=== PATIENT | female | born 1940 | race Caucasian/White ===

== ENCOUNTER → 2016-06-12 14:42 | Outpatient (CLI) | payer MEDICARE, BC ==
[2014-05-12 07:01] VITALS: BMI 26.0
[~2016-06-12 14:42] MED LIST: BAYER CHEWABLE81 MG PO; CALCIUM 600+D T1 TA1 PO; LIPITOR20 MG PO; MOBIC7.5 MG PO; PLAVIX75 MG PO; PROCARDIA XL60 MG PO; SYNTHROID200 MC1 PO
== END | disposition home or self-care (01) ==
LOC: D.MRI 14:42
DX: M54.16 Radiculopathy, lumbar region (principal)

== ENCOUNTER → 2017-08-28 16:42 | Outpatient (CLI) | payer MEDICARE, BC ==
[2014-05-12 07:01] VITALS: BMI 26.0
== END | disposition home or self-care (01) ==
LOC: D.MAMMO 08-14 14:30
DX: Z85.3 Personal history of malignant neoplasm of breast (principal)

== ENCOUNTER 2017-09-04 06:39 | Outpatient (CLI) | payer MEDICARE, BC ==
[~2017-09-04] VITALS: Ht 157.5 cm; Wt 65.9 kg
--- NOTE | ~2017-09-04 | HEMODYNAMI ---
PATIENT:THERON TLOENTINO MEDICAL RECORD: [id number] : 44 LOCATION:[facility] ADMISSION DATE: 09/04/17 Generatedon:09/04/201710:21 Patient name: THERON TOLENTINO Patient #: [id number] SSN: D OB: 1940 Date of study: 09/04/2017 Page: Of Hemodynamic Procedure Report Patient Data Patient Demographics Procedure consent was obtained First Name: THERON Gender: Female Last Name: RANDA : 1940 [facility] Initial: K Age: 76 year(s) Patient #: [id number] Race: Additional ID: [id number] Contact details Address: [address] [place] [address] ROAD State: [place] City: [place] Zip code: [address] Past Medical History History of disease Date Diagnosis Comments CAD PVD Allergies: No known allergies Admission Admission Data Admission Date: 09/04/2017 Admission Time: 6:39 Lab Results Lab Result Date: 09/04/2017 Lab Result Time: 0:00 Biochemistry Name Units Result Min Max BUN mg/dl 21 --(----)-* 7 18 Creatinine mg/dl 1 --(--*-)-- 0.6 1.3 CBC Name Units Result Min Max Hemoglobin g/dl 15.2 --(-*--)-- 13.5 17.5 Procedure Procedure Types Cath Procedure Diagnostic Procedure [facility] w/Coronaries Sedation Charges Moderate Sedation up to 15 minutes Procedure Description Procedure Date Procedure Date: 09/04/2017 Procedure Start Time: 10:03 Procedure End Time: 10:21 Procedure Staff Name Function Lincoln De Paz MD Performing Physician Stephanie Robbins RT Monitor Osiel Mojica RT Scrub Julio Cesar Ochoa RN Nurse Procedure Data Cath Procedure Fluoroscopy Diagnostic fluoroscopy Total fluoroscopy Time: 2.1 time: 2.1 min min Diagnostic fluoroscopy Total fluoroscopy dose: 311 dose: 311 mGy mGy Contrast Material Contrast Material Type Amount (ml) Isovue 370 56 Entry Location Entry Primary Successful Side Size Upsize Upsize Entry Closure [place] ccessful Closure Location (Fr) 1 (Fr) 2 (Fr) Remarks Device Remarks Radial Right 6 Fr Mechanical artery Short Compression Estimated blood loss: 5 ml Diagnostic catheters Device Type Used For End Catheter Placement DIAGNOSTIC [place] 110cm 5 Procedure Fr catheter ([id number]) Procedure Complications No complications Procedure Medications Medication Administration Route Dosage 0.9% NaCl I.V. 100 ml/hr Oxygen etCO2 Nasal cannula 2 l/min Heparin Flush Bag added to field 2 bags (1000units/500ml NS) Lidocaine 1% added to field 20 Radial Cocktail added to field 1 syringe (Verapomil 2mg/Nitro 400mcg/Heparin 1500units) Versed I.V. 1 mg Fentanyl I.V. 50 mcg Versed I.V. 1 mg Fentanyl I.V. 50 mcg Radial Cocktail I.A. 1 syringe (Verapomil 2mg/Nitro 400mcg/Heparin 1500units) Hemodynamics Rest HGB: 15.2 (g/dl) Heart Rate: 70 (bpm) Pressure Samples Time Site Value (mmHg) Purpose Heart Use Rate(bpm) 10:08 LV 120/-6,8 Snapshot 76 Gradients Valve Time Site Site Mean SEP/DFP Peak To Heart Use 1 2 (mmHg) (sec/min) Peak Rate (mmHg) (bpm) Aortic 10:08 LV AO 84 Snapshots Pre Cath Intra NCS Post Cath Vital Signs Time Heart Resp SPO2 etCO2 NIBP (mmHg) Rhythm Pain Sedation Rate (ipm) (%) (mmHg) Status Level (bpm) 9:44:07 66 19 96 0 155/69(117) NSR 0 (11) 10(A) , No pain 9:48:50 63 16 95 0 133/70(105) NSR 0 (11) 10(A) , No pain 9:53:31 62 17 96 0 131/62(105) NSR 0 (11) 10(A) , No pain 9:58:09 68 18 96 11.2 135/69(105) NSR 0 (11) 10(A) , No pain 10:02:52 63 26 92 0 125/61(99) NSR 0 (11) 10(A) , No pain 10:07:31 75 20 95 15.7 116/60(89) NSR 0 (11) 9(A) , No pain 10:12:44 70 15 93 15.7 129/57(101) NSR 0 (11) 9(A) , No pain 10:17:23 77 16 94 15.7 134/71(102) NSR 0 (11) 9(A) , No pain Medications Time Medication Route Dose Verified Delivered Reason Notes Effectiveness by by 9:47:52 0.9% NaCl I.V. 100 Julio Cesar Julio Cesar Per ml/hr Don Ochoa physician RN RN 9:48:04 Oxygen etCO2 2 l/min Julio Cesar Julio Cesar Per Nasal Don Ochoa physician cannula RN RN 9:48:39 Heparin Flush added 2 bags Julio Cesar Julio Cesar used for Bag to Don Ochoa procedure (1000units/500ml field RN RN NS) 9:48:48 Lidocaine 1% added 20ml Julio Cesar Julio Cesar for local to vial Lorigan Don anesthetic RN RN 9:48:59 Radial Cocktail added 1 Julio Cesar Julio Cesar used for (Verapomil to syringe Don Ochoa procedure 2mg/Nitro RN RN 400mcg/Heparin 1500units) 9:57:52 Versed I.V. 1 mg Julio Cesar Julio Cesar for sedation Don Ochoa RN RN 9:58:08 Fentanyl I.V. 50 mcg Julio Cesar Julio Cesar for sedation Don Ochoa RN RN 10:00:24 Versed I.V. 1 mg Julio Cesar Julio Cesar for sedation Don Ochoa RN RN 10:00:38 Fentanyl I.V. 50 mcg Julio Cesar Julio Cesar for sedation Don Ochoa RN RN 10:06:09 Radial Cocktail I.A. 1 Julio Cesar Lincoln for (Verapomil syringe Don De Paz MD vasodilation 2mg/Nitro RN 400mcg/Heparin 1500units) Procedure Log Time Note 9:26:35 Osiel Mojica RT(R) sent for patient. Start room use. 9:26:36 Time tracking: Regular hours (M-F 7:00 - 5:00) 9:26:39 Plan of Care:Hemodynamics will remain stable., Cardiac rhythm will remain stable., Comfort level will be maintained., Respiratory function will remain adequate., Patient/ family verbilizes understanding of procedure., Procedure tolerated without complication., Recovers from procedure without complications.. 9:26:51 Signed procedure consent form obtained from patient. 9:27:24 H&P Date Dictated: 08/14/2017 Within 30 days and on chart., H&P Addendum completed by physician on day of procedure. (MUST COMPLETE FOR ALL OUTPATIENTS). 9:27:41 Patient allergic to No known allergies 9:28:51 Lab Result : BUN 21 mg/dl 9::51 Lab Result : Creatinine 1 mg/dl 9::51 Lab Result : Hemoglobin 15.2 g/dl 9:33:50 Patient received from Pre/Post Procedure Room to CCL 1 Alert and oriented. Tansferred to table in Supine position. 9:33:51 Warm blankets applied, and willian hugger turned on for patient comfort. 9:33:51 Correct patient and procedure confirmed by team. 9:33:52 ECG and BP/O2 sat monitors applied to patient. 9:43:13 Vital chart was started 9:43:14 Baseline sample Acquired. 9:43:17 Rhythm: sinus rhythm 9:43:19 Full Disclosure recording started 9:43:20 Pre-procedure instructions explained to patient. 9:43:20 Pre-op teaching completed and patient verbalized understanding. 9:43:24 Family in waiting room. 9:43:28 Patient NPO since Midnight. 9:43:30 Is the patient allergic to Iodine/contrast media? No. 9:43:32 Is patient on blood thinner?Yes 9:43:42 HAVENT HAD PLAVIX IN 3 DAYS 9:43:43 Patient diabetic? No. 9:43:47 Patient not . Patient is over age 55. 9:43:49 Previous problem with sedation/anesthesia? No ? 9:43:50 Snore? Yes 9:43:51 Sleep apnea? No 9:43:53 Deviated septum? No 9:43:54 Opens mouth fully? Yes 9:43:56 Sticks out tongue? Yes 9:43:59 Airway obstruction? No ? 9:44:02 Dentures? No ? 9:44:04 Modified Jose's test Ulnar < 7 seconds 9:44:07 Patient pain scale 0/10 ?. 9:47:50 IV patent on arrival in left hand with 0.9% NaCl at O. 9:47:52 0.9% NaCl 100 ml/hr I.V. was administered by Julio Cesar Ochoa RN; Per physician; 9:47:53 Lab results completed and on chart. 9:47:56 Right Radial & Right Groin area was prepped with chlora-prep and draped in sterile fashion 9:47:57 Alarms reviewed by R. N. 9:47:57 Sharps counted by scrub and verified by R.N. 9:47:59 Use device set Radial Dx or PCI 9:48:00 ACIST Syringe (65653) opened to sterile field. 9:48:01 Bag Decanter (2002S) opened to sterile field. 9:48:03 Tegaderm 4 x 4 (1626W) opened to sterile field. 9:48:03 ACIST Hand Control (91416) opened to sterile field. 9:48:04 Oxygen 2 l/min etCO2 Nasal cannula was administered by Julio Cesar Ochoa RN; Per physician; 9:48:04 ACIST Manifold (56836) opened to sterile field. 9:48:06 Medline Cath Pack ([id number]) opened to sterile field. 9:48:06 DIAGNOSTIC WIRE .035 260cm J wire (694589) opened to sterile field. 9:48:07 MBrace Wrist Support ([id number]) opened to sterile field. 9:48:08 SHEATH 6Fr Prelude Radial ([id number]) opened to sterile field. 9:48:39 Heparin Flush Bag (1000units/500ml NS) 2 bags added to field was administered by Julio Cesar Ochoa RN; used for procedure; 9:48:48 Lidocaine 1% 20ml vial added to field was administered by Julio Cesar Ochoa RN; for local anesthetic; 9:48:59 Radial Cocktail (Verapomil 2mg/Nitro 400mcg/Heparin 1500units) 1 syringe added to field was administered by Julio Cesar Ochoa RN; used for procedure; 9:49:45 NEEDLE Cook 21G 4cm Radial ([id number]) opened to sterile field. 9:57:17 Zero performed for pressure channel P1 9:57:30 --------ALL STOP TIME OUT------ 9:57:31 Final Timeout: patient, procedure, and site verified with staff and physician. All members of the team are in agreement. 9:57:33 Right Radial & Right Groin site verified by team. 9:57:36 Physical assessment completed. ASA score P 2 - A patient with mild systemic disease as per Lincoln De Paz MD. 9:57:38 Sedation plan: IV Moderate Sedation Medication:Versed, Fentanyl 9:57:52 Versed 1 mg I.V. was administered by Julio Cesar Ochoa RN; for sedation; 9:58:08 Fentanyl 50 mcg I.V. was administered by Julio Cesar Ochoa RN; for sedation; 10:00:24 Versed 1 mg I.V. was administered by Julio Cesar Ochoa RN; for sedation; 10:00:38 Fentanyl 50 mcg I.V. was administered by Julio Cesar Ochoa RN; for sedation; 10:03:27 Procedure started. 10:03:40 Local anesthetic to right femoral artery with Lidocaine 1% by Lincoln De Paz MD.INITIAL ACCESS ONLY 10:05:48 A 6 Fr Short sheath was inserted into the Right Radial artery 10:06:09 Radial Cocktail (Verapomil 2mg/Nitro 400mcg/Heparin 1500units) 1 syringe I.A. was administered by Lincoln De Paz MD; for vasodilation; 10:06:26 A DIAGNOSTIC [place] 110cm 5 Fr catheter ([id number]) was advanced over the wire and used for Procedure. 10:07:18 LV gram done using FARR 10:07:21 Injector settings: Ml/sec: 7, Volume: 15, 10:08:33 EF : 60 % 10:09:43 LCA angiography performed. 10:11:04 RCA angiography performed. 10:16:13 Catheter removed. 10:16:59 Procedure ended.(Physican Out) 10:17:24 TR BAND Standard ([id number]) opened to sterile field. 10:17:38 Sheath removed intact; hemostasis achieved with Mechanical Compression to the Right Radial artery. 10:18:04 Fluoroscopy time 02.10 minutes. 10:18:07 Fluoroscopy dose: 311 mGy 10:18:07 Flurop Dose total: 311 10:18:22 Contrast amount:Isovue 370 56ml. 10:18:24 TR band inflated with 13cc of air. 10:18:31 Post-procedure physical assessment completed. ASA score P 2 - A patient with mild systemic disease as per Lincoln De Paz MD. 10:18:35 Post procedure rhythm: sinus rhythm 10:18:37 Estimated blood loss: 5 ml 10:18:39 Post procedure instruction explained to patient.Patient verbalizes understanding. 10:18:39 Patient needs reinforcement of post procedure teaching. 10:19:22 Procedure type changed to Cath procedure, Diagnostic procedure, LHC, LHC w/Coronaries, Sedation Charges, Moderate Sedation up to 15 minutes 10:20:09 Procedure and supply charges have been captured, reviewed, submitted and are correct. 10:20:11 Procedure Complication : No complications 10:20:54 Vital chart was stopped 10:20:54 See physician's report for complete and final results. 10:20:57 Report given to Pre/Post Procedure Room. 10:21:01 Patient transfered to Pre/Post Procedure Room with Bed. 10:21:04 Procedure ended. 10:21:04 Full Disclosure recording stopped 10:21:07 End room use (Document Last) Device Usage Item Name Manufacture Quantity Catalog Number Hospital Part Current M inimal Lot# / Charge Number Stock Stock Serial# Code ACIST Syringe Acist 1 37372 [id number] 570994 286713 2 0 (44870) [employer] Bag Decanter Microtek 1 2001S 942165 45549 417026 5 (2001S) Medical Inc. Tegaderm 4 x 4 3M 1 1626W 885604 680813 274643 5 (1626W) ACIST Hand Acist 1 25943 146206 483020 594386 5 Control (57828) [employer] Inc ACIST Manifold Acist 1 83747 937834 416720 363929 5 (38886) [employer] Inc Medline Cath Cardinal 1 [id number] 158073 27642 596941 5 [facility] ([id number]) DIAGNOSTIC WIRE [facility] [place] 1 459994 094275 282589 334957 3 0 .035 260cm J wire (670354) MBrace Wrist Advanced 1 140-0250-00 193087 22819 341092 5 Support Vascular ([id number]) Dynamics SHEATH 6Fr Merit 1 [id number] 163040 040548 989500 5 Prelude Radial Medical ([id number]) NEEDLE Cook 21G Cook Medical 1 [id number] 926983 719566 389527 5 4cm Radial (U17126) DIAGNOSTIC Terumo 1 21-4607 120840 630995 330794 5 [place] 110cm 5 Fr catheter (489606) TR BAND Terumo 1 [id number] 150384 754868 776370 4 0 Standard ([id number]) Signature Audit [place] Stage Time Signature Unsigned Intra-Procedure 09/04/2017 Stephanie Robbins 10:21:54 AM RT(R) Signatures Monitor : Stephanie Robbins Signature : RT Date : Time : [place] [id number] [place] [address]
[2017-09-04 07:29] VITALS: BP 173/65; Ht 157.5 cm; Wt 65.9 kg
[2017-09-04 07:39] LABS: BASOPHILS 0.5 % (0-2); EOSINOPHILS 2.3 % (0-7); HEMATOCRIT 44.1 % (36.0-48.0); HEMOGLOBIN 15.2 g/dL (12-16); IMMATURE GRANULOCYTES 0.4 % (0-5); LYMPHOCYTES 22.3 % (15-50); MCH 30.8 pg (26.0-34.0); MCHC 34.5 g/dL (31.0-37.0); MCV 89.5 fL (80.0-100.0); MEAN PLATELET VOLUME 10.3 fL (7.4-10.4); MONOCYTES 9.8 % (2-11); NEUTROPHILS 64.7 % (40-80); PLATELET COUNT 232 10x3/uL (130-400); RBC 4.93 10x6/uL (4.00-5.40); RDW 12.3 % (11.5-14.5)
[2017-09-04 07:49] LABS: ANION GAP 12.8 mmol/L (8-16); CALCIUM 9.7 mg/dL (8.5-10.1); POTASSIUM - SERUM 3.8 mmol/L (3.5-5.1)
== END 2017-09-04 12:37 | disposition home or self-care (01) ==
LOC: D.CATH 06:39
PROVIDERS: Internal Medicine Cardiovascular Disease
DX: I25.119 Atherosclerotic heart disease of native coronary artery with unspecified angina pectoris (principal); I10 Essential (primary) hypertension; Z01.812 Encounter for preprocedural laboratory examination

== ENCOUNTER → 2017-09-10 10:57 | Outpatient (CLI) | payer MEDICARE, BC ==
[~2017-09-10] VITALS: Ht 157.5 cm; Wt 65.9 kg
--- NOTE | ~2017-09-10 | HEMODYNAMI ---
PATIENT:THERON TOLENTINO MEDICAL RECORD: [id number] : 44 LOCATION:[facility] ADMISSION DATE: 09/10/17 Generatedon:09/10/201713:58 Patient name: THERON TOLENTINO Patient #: [id number] SSN: D OB: 1940 Date of study: 09/10/2017 Page: Of Hemodynamic Procedure Report Patient Data Patient Demographics Procedure consent was obtained First Name: THERON Gender: Female Last Name: RANDA : 1940 [facility] Initial: K Age: 76 year(s) Patient #: [id number] Race: Additional ID: [id number] Contact details Address: [address] [place] [address] ROAD State: [place] City: [place] Zip code: [address] Past Medical History History of disease Date Diagnosis Comments CAD PVD Allergies: No known allergies Admission Admission Data Admission Date: 09/10/2017 Admission Time: 10:57 Lab Results Lab Result Date: 09/04/2017 Lab Result Time: 0:00 Biochemistry Name Units Result Min Max BUN mg/dl 21 --(----)-* 7 18 Creatinine mg/dl 1 --(--*-)-- 0.6 1.3 CBC Name Units Result Min Max Hemoglobin g/dl 15.2 --(-*--)-- 13.5 17.5 Procedure Procedure Types Cath Procedure Diagnostic Procedure PREET Procedure Description Procedure Date Procedure Date: 09/10/2017 Procedure Start Time: 13:41 Procedure End Time: 13:55 Procedure Staff Name Function Monty Sanchez MD Performing Physician Juwan Wood RN Monitor Dedra Cash RT Scrub Demetria Obando RT Monitor Leopoldo Elizabeth CRNA Additional personnel Charles Justice Diet Tech Procedure Data Cath Procedure Fluoroscopy Diagnostic fluoroscopy Total fluoroscopy Time: 0 time: 0 min min Diagnostic fluoroscopy Total fluoroscopy dose: 0 dose: 0 mGy mGy Contrast Material Contrast Material Type Amount (ml) Isovue 300 0 Estimated blood loss: 5 ml Procedure Complications No complications Procedure Medications Medication Administration Route Dosage Oxygen etCO2 Nasal cannula 3 l/min Refer to Anesthesia Notes for Sedation Medications 0.9% NaCl I.V. 100 ml/hr Hemodynamics Rest HGB: 15.2 (g/dl) Pre Cath Intra NCS Post Cath Vital Signs Time Heart Resp SPO2 etCO2 NIBP (mmHg) Rhythm Pain Sedation Rate (ipm) (%) (mmHg) Status Level (bpm) 13:44:12 83 26 97 11.9 Measuring NSR 0 (11) 10(A) , No pain 13:45:36 68 24 100 19.4 Time NSR 0 (11) 10(A) Exceeded , No pain 13:46:57 74 9 97 0 No Cuff NSR 0 (11) 10(A) , No pain 13:48:30 93 22 94 0 Out of NSR 0 (11) 10(A) range , No pain 13:50:35 85 24 99 21.6 181/69(100) NSR 0 (11) 10(A) , No pain 13:54:16 70 19 96 0 139/67(107) NSR 0 (11) 10(A) , No pain 13:56:45 70 18 98 22.4 134/68(112) NSR 0 (11) 10(A) , No pain Medications Time Medication Route Dose Verified Delivered Reason Notes Effective ness by by 13:46:15 Oxygen etCO2 3 Monty Echeverria Per Nasal l/min [facility] RN physician cannula 13:46:22 Refer to Monty Echeverria Per Anesthesia [facility] RN physician Notes for MD Sedation Medications 13:46:34 0.9% NaCl I.V. 100 Monty Juwan Per ml/hr [facility] RN physician MD Procedure Log Time Note 13:23:23 Diagnostic Cath Status : Elective 13:24:07 Juwan Wood RN sent for patient. Start room use. 13:24:08 Time tracking: Regular hours (M-F 7:00 - 5:00) 13:24:13 Plan of Care:Hemodynamics will remain stable., Cardiac rhythm will remain stable., Comfort level will be maintained., Respiratory function will remain adequate., Patient/ family verbilizes understanding of procedure., Procedure tolerated without complication., Recovers from procedure without complications.. 13:30:42 Patient received from Pre/Post Procedure Room to CCL 2 Alert and oriented. Tansferred to table in Supine position. 13:30:43 Warm blankets applied, and willian hugger turned on for patient comfort. 13:30:43 Correct patient and procedure confirmed by team. 13:30:44 Signed procedure consent form obtained from patient. 13:30:45 ECG and BP/O2 sat monitors applied to patient. 13:36:02 Vital chart was started 13:36:09 Rhythm: sinus rhythm 13:36:11 Full Disclosure recording started 13:36:16 H&P Date Dictated: 09/10/2017 Within 30 days and on chart., H&P Addendum completed by physician on day of procedure. (MUST COMPLETE FOR ALL OUTPATIENTS). 13:36:17 Pre-procedure instructions explained to patient. 13:36:17 Pre-op teaching completed and patient verbalized understanding. 13:36:19 Family in waiting room. 13:36:20 Patient NPO since Midnight. 13:36:23 Is the patient allergic to Iodine/contrast media? No. 13:36:23 Was the patient premedicated? No 13:36:30 Is patient on blood thinner?Yes 13:36:33 ACC The patient was administered the following blood thiners within the last 24 hours: ACCPlavix 13:36:35 Patient diabetic? No. 13:36:37 Previous problem with sedation/anesthesia? No ? 13:36:39 Snore? Yes 13:36:40 Sleep apnea? Yes 13:36:42 Deviated septum? No 13:36:43 Opens mouth fully? Yes 13:36:45 Sticks out tongue? Yes 13:36:51 Airway obstruction? No ? 13:36:53 Dentures? No ? 13:36:56 Pre procedure: right dorsailis pedis pulse 1+ Palpable, but thready & weak; easily obliterated 13:36:58 Pre procedure: left dorsailis pedis pulse 1+ Palpable, but thready & weak; easily obliterated 13:37:00 Patient pain scale 0/10 ?. 13:37:05 IV patent on arrival in right forearm with 0.9% NaCl at KVO. 13:37:07 Lab results completed and on chart. 13:37:13 Alarms reviewed by R. N. 13:37:13 Sharps counted by scrub and verified by AnneN. 13:37:15 Physician arrived 13:37:15 --------ALL STOP TIME OUT------ 13:37:16 Final Timeout: patient, procedure, and site verified with staff and physician. All members of the team are in agreement. 13:37:23 Physical assessment completed. ASA score P 2 - A patient with mild systemic disease as per Monty Sanchez MD. 13:37:33 Sedation plan: TIVA Medication:Propofol 13:37:59 Leopoldo Elizabeth CRNA present and monitoring patient for TIVA. 13:38:02 Charles Boonedsoe Fuller Brush Worker present for PREET. 13:41:04 Procedure started. 13:41:07 PREET started. 13:45:44 Vital chart was stopped 13:45:45 Vital chart was started 13:46:15 Oxygen 3 l/min etCO2 Nasal cannula was administered by Juwan Wood RN; Per physician; 13:46:22 Refer to Anesthesia Notes for Sedation Medications was administered by Juwan Wood RN; Per physician; 13:46:34 0.9% NaCl 100 ml/hr I.V. was administered by Juwan Wood RN; Per physician; 13:49:56 PREET completed. 13:52:48 Procedure ended.(Physican Out) 13:52:57 Fluoroscopy time 00.00 minutes. 13:52:59 Fluoroscopy dose: 0 mGy 13:52:59 Flurop Dose total: 0 13:53:02 Contrast amount:Isovue 300 0ml. 13:53:04 Sharps counted by scrub and verified by R.N. 13:53:07 Insertion/operative site no bleeding no hematoma. 13:53:48 Post Procedure Pulses reassessed and unchanged 13:54:43 Post procedure rhythm: unchanged. 13:54:45 Estimated blood loss: 5 ml 13:54:47 Post procedure instruction explained to patient.Patient verbalizes understanding. 13:54:47 Patient needs reinforcement of post procedure teaching. 13:54:59 Procedure and supply charges have been captured, reviewed, submitted and are correct. 13:55:05 Procedure Complication : No complications 13:55:07 See physician's report for complete and final results. 13:55:15 Report given to Pre/Post Procedure Room. 13:55:18 Patient transfered to Pre/Post Procedure Room with Stretcher. 13:55:20 Procedure ended. 13:55:20 Full Disclosure recording stopped 13:55:23 End room use (Document Last) 13:58:34 Vital chart was stopped Signature Audit [place] Stage Time Signature Unsigned Intra-Procedure 09/10/2017 Demetria Obando 1:58:32 PM RT(R) Signatures Monitor : Juwan Wood Signature : RN Date : Time : Monitor : Demetria Obando RT Signature : Date : Time : [address] [place] [address]
--- NOTE | ~2017-09-10 | HP ---
PATIENT: THERON TOLENTINO MEDICAL RECORD: [id number] ACCOUNT: [id number] LOCATION:LEELA : 44 ADMISSION DATE: 09/10/17 HISTORY AND PHYSICAL EXAMINATION INTERIM HISTORY AND PHYSICAL HISTORY: A 76-year-old female with known history of coronary disease, status post recent angiography via Dr. De Paz. She was noted to have moderate, possible worse mitral regurgitation as well. We will proceed with transesophageal echocardiogram to assure no surgical MR before intervention percutaneously. PAST MEDICAL HISTORY: 1. History of dyslipidemia. 2. Hypertension. 3. Coronary disease as described above. 4. Hypothyroidism. PHYSICAL EXAMINATION: GENERAL: Pleasant female, in no acute distress. HEENT: Normocephalic, atraumatic. NECK: No bruits. HEART: Regular with II/ systolic ejection murmur. LUNGS: Good air excursion. ABDOMEN: Soft, nontender. EXTREMITIES: Pulse 2+ and equal. No edema. IMPRESSION: Known history of coronary disease and mitral regurgitation. We will use transesophageal echocardiography to assess the extent of mitral regurgitation to further delineate intervention. TRANSINT:[id number] Voice Confirmation ID: [id number] DOCUMENT ID: [id number] LIAM BERNARDO MD at 0849 CC: [id number] DICTATION DATE: 09/10/17 1318 RN CARDIOVASCULAR: 09/10/17 1400 DEP CLI 09/10/17 [place] [id number] [place] [id number]
--- NOTE | ~2017-09-10 | TEE ---
PATIENT:THERON TOLENTINO MEDICAL RECORD: [id number] LOCATION:D.[facility] AGE OF PATIENT: 76 ADMISSION DATE: 09/10/17 SEX: F REFERRING PHYSICIAN: INTERPRETING PHYSICIAN: LIAM BERNARDO MD TRANSESOPHAGEAL ECHOCARDIOGRAM Date: 09/10/17 PREET CHARGE Y INDICATIONS: MR PREMEDICATIONS: PATIENT'S RESPONSE PROCEDURE DOPPLER MEASUREMENTS: LVIT LA PA RA LVOT RVOT Asc. Ao AV Gradient Peak AV Mean AV Area MV Gradient Peak MV Mean MV Area INTERPRETATION: Doppler: 2-D: COLOR FLOW DOPPLER NORMAL SALINE STUDY: MISCELLANOUS: DIAGNOSIS: PLAN: Rn Endoscopy:3 Dr. Dumont Wholesale Manager: 1 ADEN HERNANDEZ COMMENTS: DATE OF SERVICE: 09/10/2017 Transesophageal Note PROCEDURE IN DETAIL: After general sedation via TIVA via anesthesia, transesophageal Omniplane probe was placed in the distal esophagus and proximal stomach without difficulty. FINDINGS: Normal LV wall motion. Normal internal dimension. Estimated EF 55%. TRANSESOPHAGEAL ECHOCARDIOGRAM REPORT [id number] GAURAV TOLENTINO Aortic valve is tricuspid with good valve excursion, trivial AI by color flow imaging. Left atrium appears of normal dimensions. Left atrial appendage is well visualized with excellent contractility. Mitral valve is well visualized. Mild prolapse of the anterior leaflet, but mild/mild plus MR by color flow imaging. Right sided chambers were grossly normal. Mild TR with by color flow imaging. At the end of procedure, the probe was turned posteriorly and this showed minimal atherosclerotic debris in the descending aorta. TRANSINT:[id number] Voice Confirmation ID: [id number] DOCUMENT ID: [id number] at 0849 CC: [id number] DICTATION DATE: 09/10/17 1355 TELEPHONE SALES AGENT: 09/10/17 1432 DEP CLI 09/10/17 [place] [id number] [place] [id number]
[2017-09-10 12:13] VITALS: BP 161/69; Ht 157.5 cm; Wt 65.9 kg
[2017-09-10 12:19] LABS: BASOPHILS 0.4 % (0-2); EOSINOPHILS 1.8 % (0-7); HEMATOCRIT 44.3 % (36.0-48.0); IMMATURE GRANULOCYTES 0.3 % (0-5); LYMPHOCYTES 18.3 % (15-50); MCH 30.4 pg (26.0-34.0); MCHC 33.9 g/dL (31.0-37.0); MCV 89.7 fL (80.0-100.0); MEAN PLATELET VOLUME 10.2 fL (7.4-10.4); MONOCYTES 10.7 % (2-11); NEUTROPHILS 68.5 % (40-80); PLATELET COUNT 232 10x3/uL (130-400); RBC 4.94 10x6/uL (4.00-5.40); RDW 12.4 % (11.5-14.5); WBC 9.2 10x3/uL (4.8-10.8)
[2017-09-10 13:05] LABS: ANION GAP 14.3 mmol/L (8-16); CALCIUM 9.6 mg/dL (8.5-10.1); CARBON DIOXIDE 24.4 mmol/L (21.0-32.0); CREATININE - SERUM 0.9 mg/dL (0.6-1.3); POTASSIUM - SERUM 3.7 mmol/L (3.5-5.1)
== END | disposition home or self-care (01) ==
LOC: D.CATH 10:57
PROVIDERS: Internal Medicine Cardiovascular Disease
DX: I34.0 Nonrheumatic mitral (valve) insufficiency (principal); Z01.812 Encounter for preprocedural laboratory examination

== ENCOUNTER → 2017-10-13 07:19 | Outpatient (CLI) | payer MEDICARE, BC ==
[2017-09-10 12:13] VITALS: BMI 26.6
== END | disposition home or self-care (01) ==
LOC: D.RT 07:19
DX: R06.02 Shortness of breath (principal)

== ENCOUNTER → 2018-05-07 08:36 | Outpatient (CLI) | payer MEDICARE, BC ==
[2017-09-10 12:13] VITALS: BMI 26.6
== END | disposition home or self-care (01) ==
LOC: D.US 08:36
DX: E04.9 Nontoxic goiter, unspecified (principal)

== ENCOUNTER → 2018-05-27 06:36 | Outpatient (CLI) | payer MEDICARE, BC ==
[2017-09-10 12:13] VITALS: BMI 26.6
== END | disposition home or self-care (01) ==
LOC: D.MRI 06:36
PROVIDERS: ATTEND Family Medicine
DX: M79.671 Pain in right foot (principal)

== ENCOUNTER 2019-01-01 08:00 | Outpatient (CLI) | payer MEDICARE, BC ==
[2017-09-10 12:13] VITALS: BMI 26.6
== END 2019-01-01 23:59 | disposition home or self-care (01) ==
LOC: D.MAMMO 08:00
PROVIDERS: ATTEND Family Medicine
DX: Z12.31 Encounter for screening mammogram for malignant neoplasm of breast (principal)

== ENCOUNTER 2019-02-02 08:00 | Outpatient (CLI) | payer MEDICARE, BC ==
[2017-09-10 12:13] VITALS: BMI 26.6
== END 2019-02-02 23:59 | disposition home or self-care (01) ==
LOC: D.MAMMO 08:00
PROVIDERS: ATTEND Family Medicine
DX: R92.8 Other abnormal and inconclusive findings on diagnostic imaging of breast (principal)

== ENCOUNTER → 2019-05-20 15:19 | Outpatient (CLI) | payer MEDICARE, BC ==
[2017-09-10 12:13] VITALS: BMI 26.6
== END | disposition home or self-care (01) ==
LOC: D.LABREF 15:19
PROVIDERS: ATTEND Orthopaedic Surgery
DX: M17.12 Unilateral primary osteoarthritis, left knee (principal)

== ENCOUNTER 2019-07-15 12:58 | Inpatient (IN) | payer MEDICARE, BC ==
[~2019-07-15] VITALS: Ht 157.5 cm; Wt 76.2 kg
[~2019-07-15 12:58] MED LIST changes: +SKELAXIN800 MG PO; +SYNTHROID150 MCG PO; -SYNTHROID200 MC1 PO
[2019-07-28 11:16] LABS: BASOPHILS 0.4 % (0-2); HEMATOCRIT 45.5 % (36.0-48.0); HEMOGLOBIN 14.2 g/dL (12-16); IMMATURE GRANULOCYTES 0.3 % (0-5); LYMPHOCYTES 16.4 % (15-50); MCH 29.5 pg (26.0-34.0); MCHC 31.2 g/dL (31.0-37.0); MCV 94.4 fL (80.0-100.0); MONOCYTES 9.6 % (2-11); NEUTROPHILS 71.3 % (40-80); PLATELET COUNT 264 10x3/uL (130-400); RBC 4.82 10x6/uL (4.00-5.40); RDW 13.5 % (11.5-14.5)
[2019-07-28 11:28] LABS: ANION GAP 10.8 mmol/L (8-16); APTT 28.3 SECONDS (22.8-39.4); CALCIUM 9.3 mg/dL (8.5-10.1); CARBON DIOXIDE 27.6 mmol/L (21.0-32.0); CREATININE - SERUM 0.9 mg/dL (0.6-1.3); INR 0.94 (0.85-1.17); POTASSIUM - SERUM 3.4 mmol/L (3.5-5.1); PROTIME 12.5 SECONDS (11.6-15.0)
[2019-07-28 12:01] LABS: BACTERIA FEW /hpf (NEGATIVE); BILIRUBIN NEGATIVE (NEGATIVE); EPITHELIAL CELLS 0-5 /hpf (0-5); GLUCOSE NEGATIVE (NEGATIVE); KETONE NEGATIVE (NEGATIVE); NITRITE NEGATIVE (NEGATIVE); RED CELLS - URINE OCC /hpf (0-5); SPECIFIC GRAVITY 1.025 (1.005-1.020); UROBILINOGEN NORMAL (NORMAL)
[2019-08-03] VITALS (8 sets, daily range): BP systolic 120–191; BP diastolic 50–75; BMI 28.4; BMI 30.2
--- NOTE | 2019-08-03 10:59 | NUR ---
THROUGH TRAFFIC KEPT TO A MINIMUM. HIBACLENS AND ALCOHOL USED TO PREP ENTIRE LEFT LEG PRIOR TO CHLORAPREP. STERILE GOWNED AND GLOVED FOR CHLROPREP OF ENTIRE LEFT LEG.
--- NOTE | 2019-08-03 13:00 | NUR ---
RECEIVED TO ROOM 1212 VIA BED FROM PACU. A/O X3. NO C/O PAIN AT THIS TIME. DRESSING TO LEFT KNEE IS DRY AND INTACT. SKIN IS INTACT OTHERWISE. DENIES NEEDS.
--- NOTE | 2019-08-03 17:38 | OP ---
PATIENT NAME: THERON SOTELO MEDICAL RECORD: [id number] :44 LOCATION:D.[facility] D.1212 ADMISSION DATE:08/03/19 SURGEON: DENVER PARHAM DO DATE OF OPERATION: 08/03/2019 PROCEDURE PERFORMED: Left total knee arthroplasty. PREOPERATIVE DIAGNOSIS: Left knee osteoarthritis. POSTOPERATIVE DIAGNOSIS: Left knee osteoarthritis. INDICATIONS: Ms. Sotelo is a 78-year-old female who has had left knee pain for a long time. She has tried all manner of nonoperative treatment including injections and home physical therapy to no avail. She was tired of dealing with the pain and it was affecting her activities of daily living and she wanted something done surgically. She was aware of the risks including infection, bleeding, damage to nerves and vessels, need for further surgery, failure of implants, continued pain, blood clots, and even and she signed a consent. SURGEON: Denver Parham DO DESCRIPTION OF PROCEDURE: The patient was taken to the operative suite, laid in supine position after given a block by anesthesia in the preoperative area. She was given a gram of Ancef and 80 mg of gentamicin. She was sedated and LMA was placed. The left lower extremity was then prepped and draped in sterile fashion. Timeout was performed, everyone was in agreement as to the correct side, site and patient and procedure. I then marked out the incision, covered in [place]. I started with a 10-blade scalpel and careful dissection down through the skin to the capsule. I then used fresh 10-blade scalpel for medial parapatellar approach to the knee and opened up the capsule, part of the fat pad was removed. I then measured the patella and milled it down. The knee was then flexed and intramedullary guide was used. After the ACL was removed to go into the knee, the distal femur cutting guide was then put on and cut the distal femur, then cut the proximal tibia as well, removing the menisci and any excess bone. I then put the 10 extension block and it fit well. We then flexed the femur up and measured the femur to be a 57.5, did 4-in-1 cutting block and cut the femur. Once the femur was cut, the trial was put on and tibia floated in. I marked the rotation and then this was removed. We drilled the lug holes in the femur as well as the holes for the patellar implant. We then exposed the tibia, reamed and punched the tibia. Tibia tray was sized to be 63, the extra hole was then put in the tibia with a mix of cement after irrigating the tibia very well, put cement on the tibia as well as on the implant, impacted into place. Excess cement was removed. We then impacted the femur on and put a 10-poly between and then put the patella on and put cement on the patella and in the holes and squeezed into place. While it was held, we put a 500 mL with 10% povidone iodine in the knee and let it sit for 3 minutes and irrigated out with more than a liter of normal saline. By that time, the cement had dried. We then trialed the 12-poly and it fit the best with good medial and lateral stability in extension and flexion. We then irrigated the knee one more time and put a 12 E-poly with anterior stabilized bearing and the knee ranged very well and stable in flexion and extension. I then put the locking bar in and put [place], vancomycin and tobramycin powder in the knee and closed the capsule with #1 pops using a genpiw-fx-vglzm stitch. This was done by myself and Alfred Buchanan, certified surgical 411 directory assistance operator. He then closed the skin with 2-0 Vicryl in inverted interrupted fashion and ZipLine was placed on the knee. I OPERATIVE REPORT [id number] THERON SOTELO then placed Restor VAC around the leg and she was then awakened and taken to recovery in stable condition. Blood loss was approximately 200 mL. COMPLICATIONS: None. TRANSINT:[id number] Voice Confirmation ID: [id number] DOCUMENT ID: [id number] DENVER PARHAM DO at 1738 CC: [id number] DICTATION DATE: 08/03/19 1224 MANAGER METROLOGY: 08/03/19 1459 [facility] [place] [id number] [place] [address]
--- NOTE | 2019-08-03 17:50 | NUR ---
ATE ALL OF SUPPER. UP TO BR WITH ONE PERSON MIN ASSIST AND RW. VOIDED 300CC CLEAR YELLOW URINE. REPOSTIONED IN BED FOR COMFORT. CPM PLACED TO RIGHT KNEE. DENIES NEEDS.
--- NOTE | 2019-08-03 22:59 | NUR ---
PT ASSISTED TO BATHROOM TOLERATED WELL. BACK IN BED. COMPLAINS OF PAIN WITH PRN PAIN MEDICATION GIVEN PER MAY. RESTING WITH EYES CLOSED AND CHEST RISING. CALL LIGHT IN REACH. WILL CONTINUE TO OBSERVE.
--- NOTE | 2019-08-04 01:09 | NUR ---
ASSIST GIVEN TO BATHROOM. PT USES WALKER WITH SLOW GAIT. PT IN BED. NO NEEDS MADE KNOWN. CALL LIGHT IN REACH.
--- NOTE | 2019-08-04 06:17 | NUR ---
PT OFF CPM 1950 AND BACK ON AT 5. PT TO BATHROOM PRIOR TO CPM. WILL CONTINUE TO OBSERVE.
[2019-08-04 06:30] LABS: BASOPHILS 0.1 % (0-2); EOSINOPHILS 0 % (0-7); HEMATOCRIT 36.7 % (36.0-48.0); HEMOGLOBIN 11.5 g/dL (12-16); IMMATURE GRANULOCYTES 0.3 % (0-5); LYMPHOCYTES 7.4 % (15-50); MCH 29.1 pg (26.0-34.0); MCHC 31.3 g/dL (31.0-37.0); MCV 92.9 fL (80.0-100.0); MEAN PLATELET VOLUME 9.9 fL (7.4-10.4); MONOCYTES 8.6 % (2-11); NEUTROPHILS 83.6 % (40-80); PLATELET COUNT 243 10x3/uL (130-400); RBC 3.95 10x6/uL (4.00-5.40); RDW 13.4 % (11.5-14.5); WBC 15.6 10x3/uL (4.8-10.8)
[2019-08-04 06:46] LABS: ANION GAP 10.3 mmol/L (8-16); CALCIUM 8.5 mg/dL (8.5-10.1); CARBON DIOXIDE 24.1 mmol/L (21.0-32.0); PHOSPHOROUS 3.5 mg/dL (2.5-4.9); POTASSIUM - SERUM 4.4 mmol/L (3.5-5.1)
[2019-08-04 08:30] VITALS: BP 114/57
[2019-08-04 13:06] VITALS: Ht 157.5 cm; Wt 76.2 kg
--- NOTE | 2019-08-04 14:30 | NUR ---
PT IS VERY CONFUSED AND AGGITATED. WAS CALM AND COOPERATIVE THIS AM AND DURING LUNCH. SPOKE WITH HER FAMILY VIA PHONE AND THEY REPORT THAT SHE HAS APFO0GH WHEN SHE GETS CONFUSED AND THIS IS NOT NEW.
--- NOTE | 2019-08-04 18:27 | MORECARE ---
CASE MANAGEMENT DISCHARGE SUMMARY PATIENT: THERON TOLENTINO UNIT: [id number] ADM DATE: 08/03/19 AGE: 78 : 42 SEX: F ROOM/BED: D.1212 AUTHOR: JENIFER POWELL PHYSICIAN: REFERRING PHYSICIAN: KATELYNN PARHAM DO DATE OF SERVICE: 08/04/19 Discharge Plan Patient Name: THERON TOLENTINO Facility: [facility]:[place] : 1940 Planned Disposition: Outpatient PT\OT Anticipated Discharge Date: 08/05/19 Discharge Date: Expected LOS: 2 Initial Reviewer: [email or web address] Initial Review Date: 08/03/2019 Generated: 08/04/19 7:26 pm Patient Name: THERON TOLENTINO Page 14624 at 1827 All edits/amendments must be made on the electronic document DICTATION DATE: 08/04/191825 ENGINE DISPATCHER: ELLIOT 08/04/191825 RPT#: [id number] DC DATE: STATUS: ADM IN [facility] [address] [place] [address] END OF REPORT
--- NOTE | 2019-08-04 18:33 | MORECARE ---
CASE MANAGEMENT DISCHARGE SUMMARY PATIENT: THERON TOLENTINO UNIT: [id number] ADM DATE: 08/03/19 AGE: 78 : 42 SEX: F ROOM/BED: D.1212 AUTHOR: JENIFER POWELL PHYSICIAN: REFERRING PHYSICIAN: KATELYNN PARHAM DO DATE OF SERVICE: 08/04/19 Discharge Plan Patient Name: THERON TOLENTINO Facility: [facility]:[place] : 1940 Planned Disposition: Outpatient PT\OT Anticipated Discharge Date: 08/05/19 Discharge Date: Expected LOS: 2 Initial Reviewer: [email or web address] Initial Review Date: 08/03/2019 Generated: 08/04/19 7:33 pm DCPIA - Discharge Planning Initial Assessment Updated by [email or web address]: Kayla Amador on 08/04/19 6:30 pm * Is the patient Alert and Oriented? Yes * How many steps to enter\exit or inside your home? Ramp * PCP Dr. Acosta * [facility]acy [facility] * Preadmission Environment Home Alone * ADLs Independent * Equipment Rolling Walker Shower Chair * Other Equipment CPM, Ice Wrap * List name and contact numbers for known caregivers / representatives who currently or will assist patient after discharge: Chuy Waldrop (son) [phone] Kaylyn Weiwei dtr) [phone] * Verbal permission to speak to the caregivers and representatives has been obtained from the patient. Yes * Community resources currently utilized None * Please name any agencies selected above. [facility] [phone] * Additional services required to return to the preadmission environment? Yes * Can the patient safely return to the preadmission environment? Yes * Has this patient been hospitalized within the prior 30 days at any hospital? No Last DP export: 08/04/19 5:27 p Patient Name: THERON TOLENTINO Page 86422 at 1833 All edits/amendments must be made on the electronic document DICTATION DATE: 08/04/191832 WATCH ASSEMBLY INSPECTOR: ELLIOT 08/04/191832 RPT#: [id number] DC DATE: STATUS: ADM IN [facility] [address] [facility] [place] [address] END OF REPORT
--- NOTE | 2019-08-04 18:40 | MORECARE ---
CASE MANAGEMENT DISCHARGE SUMMARY PATIENT: THERON SOTELO UNIT: [id number] ADM DATE: 08/03/19 AGE: 78 : 42 SEX: F ROOM/BED: D.1212 AUTHOR: ANDRE,JENIFER PHYSICIAN: REFERRING PHYSICIAN: KATELYNN PARHAM DO DATE OF SERVICE: 08/04/19 Discharge Plan Patient Name: THERON SOTELO Facility: [facility]:[place] : 1940 Planned Disposition: Outpatient PT\OT Anticipated Discharge Date: 08/05/19 Discharge Date: Expected LOS: 2 Initial Reviewer: [email or web address] Initial Review Date: 08/03/2019 Generated: 08/04/19 7:39 pm Comments DCP- Discharge Planning Updated by [email or web address]: Kayla Amador on 08/04/19 5:[address] DC Plans: [facility], #[phone]. CM will contact 08/04. CM met with patient to discuss initial discharge planning. Patient is in agreement to proceed with the assessment. Patient reports that she lives at home independently with her spouse and sister. Patient is alert/oriented. Stairs/steps: Ramps. PCP: Dr. Acosta. Pharmacy: [facility], [facility]. Patient states she has been able to obtain all of their prescribed medications. HHS: No. DME: Walker, CPM, BSC, Ice wrap. Patient gives permission to speak with family members. Emergency contact: Chuy Sotelo (son) [phone], Kaylyn Gagan (dtr) [phone]. Patient is Independent with all ADL's, medication management ENERGY MANAGER. CM discussed the availability of HH, Rehab, SNF, OP Therapy, DME services. Patient is current with [facility] ([phone]). Patient feels safe returning to previous environment. Patient denies being hospitalized within the past 30 days. Patient denies the use of community resources ENERGY MANAGER. Transportation at time of discharge: , Chuy, or son Chuy Joy DCPIA - Discharge Planning Initial Assessment Updated by [email or web address]: Kayla Amador on 08/04/19 6:30 pm * Is the patient Alert and Oriented? Yes * How many steps to enter\exit or inside your home? Ramp * PCP Dr. Acosta * [facility] * Preadmission Environment Home Alone * ADLs Independent * Equipment Rolling Walker Shower Chair * Other Equipment CPM, Ice Wrap * List name and contact numbers for known caregivers / representatives who currently or will assist patient after discharge: Chuy Waldrop (son) [phone] Kaylyn Farah dtr) [phone] * Verbal permission to speak to the caregivers and representatives has been obtained from the patient. Yes * Community resources currently utilized None * Please name any agencies selected above. [facility] [phone] * Additional services required to return to the preadmission environment? Yes * Can the patient safely return to the preadmission environment? Yes * Has this patient been hospitalized within the prior 30 days at any hospital? No Last DP export: 08/04/19 5:33 p Patient Name: THERON SOTELO Page 20531 at 1840 All edits/amendments must be made on the electronic document DICTATION DATE: 08/04/191838 METAL RIVETING MACHINE OPERATOR: ELLIOT 08/04/191838 RPT#: [id number] DC DATE: STATUS: ADM IN [facility] [address] [place] [address] END OF REPORT
--- NOTE | 2019-08-04 18:46 | MORECARE ---
CASE MANAGEMENT DISCHARGE SUMMARY PATIENT: JOAN SOTELO UNIT: [id number] ADM DATE: 08/03/19 AGE: 78 : 42 SEX: F ROOM/BED: D.1212 AUTHOR: JENIFER POWELL PHYSICIAN: REFERRING PHYSICIAN: KATELYNN PARHAM DO DATE OF SERVICE: 08/04/19 Discharge Plan Patient Name: JOAN SOTELO Facility: [facility]:[place] : 1940 Planned Disposition: Outpatient PT\OT Anticipated Discharge Date: 08/05/19 Discharge Date: Expected LOS: 2 Initial Reviewer: [email or web address] Initial Review Date: 08/03/2019 Generated: 08/04/19 7:46 pm Comments DCP- Discharge Planning Updated by [email or web address]: Kayla Amador on 08/04/19 5:[address] DC Plans: [facility], #[phone]. CM will contact 08/04. CM met with patient to discuss initial discharge planning. Patient is in agreement to proceed with the assessment. Patient reports that she lives at home independently with her spouse and sister. Patient is alert/oriented. Stairs/steps: Ramps. PCP: Dr. Acosta. Pharmacy: [facility]. Patient states she has been able to obtain all of their prescribed medications. HHS: No. DME: Walker, CPM, BSC, Ice wrap. Patient gives permission to speak with family members. Emergency contact: Chuy Sotelo Jr (son) [phone], Kaylyn Farah (dtr) [phone]. Patient is Independent with all ADL's, medication management PANEL BUILDER. CM discussed the availability of HH, Rehab, SNF, OP Therapy, DME services. Patient is current with [facility] ([phone]). Patient feels safe returning to previous environment. Patient denies being hospitalized within the past 30 days. Patient denies the use of community resources PANEL BUILDER. Transportation at time of discharge: , Chuy, or son Chuy Campbell. DCPIA - Discharge Planning Initial Assessment Updated by [email or web address]: Kayla Amador on 08/04/19 6:30 pm * Is the patient Alert and Oriented? Yes * How many steps to enter\exit or inside your home? Ramp * PCP Dr. Acosta * [facility] * Preadmission Environment Home Alone * ADLs Independent * Equipment Rolling Walker Shower Chair * Other Equipment CPM, Ice Wrap * List name and contact numbers for known caregivers / representatives who currently or will assist patient after discharge: Chuy Waldrop (son) [phone] Kaylyn Farah dtr) [phone] * Verbal permission to speak to the caregivers and representatives has been obtained from the patient. Yes * Community resources currently utilized None * Please name any agencies selected above. [facility] [phone] * Additional services required to return to the preadmission environment? Yes * Can the patient safely return to the preadmission environment? Yes * Has this patient been hospitalized within the prior 30 days at any hospital? No Coverage Notice Reviewer: [email or web address] Glenis Amador Notice Issued Date-Time: 08/04/2019 18:39 Notice Type: IM Discharge Notice Notice Delivered To: Patient Relationship to Patient: Self Helicopter Technician Name: Joan Sotelo Delivery Method: HAND - Hand Delivered Dayna Days: Prior Verbal Notification: Recipient Understood Notice: Yes Recipient Signature: Yes Med Rec Note Co-signed by Attending: Coverage Notice Comment: DC IMM to chart. Last DP export: 08/04/19 5:40 p Patient Name: JOAN SOTELO Page 17038 at 1846 All edits/amendments must be made on the electronic document DICTATION DATE: 08/04/191845 LIFT TRUCK OPERATOR: ELLIOT 08/04/191845 RPT#: [id number] DC DATE: STATUS: ADM IN [facility] [address] [place] [address] END OF REPORT
[2019-08-04 19:52] LABS: BILIRUBIN NEGATIVE (NEGATIVE); GLUCOSE NEGATIVE (NEGATIVE); KETONE NEGATIVE (NEGATIVE); NITRITE NEGATIVE (NEGATIVE); UROBILINOGEN NORMAL (NORMAL)
[2019-08-04 20:00] VITALS: BP 140/70
--- NOTE | 2019-08-04 20:00 | NUR ---
ALERT BUT CONFUSED TO WHERE SHE IS AT TIMES, CLIMBING OUT OF BED TO USE BEDSIDE COMODE, ASSISTED BACK TO BED, WOUND VAC DRESSING AND CHIN WRAP INTACT TO LEFT KNEE, SEE SHIFT ASSESSMENT, CALL LIGNT IN REACH FALL PRECAUTIONS IN PLACE, BED ALARM ON
[2019-08-05 04:00] VITALS: BP 113/65
[2019-08-05 08:15] VITALS: BP 163/58
[2019-08-05 08:18] LABS: ANION GAP 13.5 mmol/L (8-16); BASOPHILS 0.3 % (0-2); CALCIUM 8.7 mg/dL (8.5-10.1); CARBON DIOXIDE 24.4 mmol/L (21.0-32.0); EOSINOPHILS 1.4 % (0-7); HEMATOCRIT 38.7 % (36.0-48.0); HEMOGLOBIN 12.2 g/dL (12-16); IMMATURE GRANULOCYTES 0.3 % (0-5); LYMPHOCYTES 10.9 % (15-50); MCH 29.3 pg (26.0-34.0); MCHC 31.5 g/dL (31.0-37.0); MEAN PLATELET VOLUME 10.2 fL (7.4-10.4); MONOCYTES 7.6 % (2-11); NEUTROPHILS 79.5 % (40-80); PLATELET COUNT 260 10x3/uL (130-400); POTASSIUM - SERUM 3.9 mmol/L (3.5-5.1); RBC 4.16 10x6/uL (4.00-5.40); RDW 13.8 % (11.5-14.5); WBC 12.8 10x3/uL (4.8-10.8)
--- NOTE | 2019-08-05 08:30 | NUR ---
PT SITTING UP IN BED. RESP EVEN AND UNLABORED. PT TAKING FREQUENT SIPS OF WATER, BUT C/O NOT BEING ABLE TO SWALLOW. OBSERVED PT SWALLOW WATER, NO DROOLING, NO CHOKING. PT THEN STATES TO STAFF, "I KNOW IT LOOKS LIKE I SWALLOWED, BUT LISTEN I CANT BURP IT BACK UP", PT THEN BELCHES. DR. PARHAM PRESENT, INFORMED HIM OF PT COMPLAINT. NEW ORDER NOTED.
--- NOTE | 2019-08-05 09:13 | NUR ---
PTS MORNING MEDICATIONS ADMINISTERED PER MD ORDERS. GUNNAR WELL. NO DROOLING OR CHOKING NOTED AT THIS TIME. CPM REMOVED FROM PT LEFT LOWER EXTREMITY. DRESSING C/D/I
--- NOTE | 2019-08-05 11:08 | NUR ---
PT REMAINS UP IN CHAIR AT BEDSIDE. NO ACUTE DISTRESS NOTED AT THIS TIME. CL WITHIN REACH. DENIES FURTHER NEEDS AT THIS TIME. ENCOURAGED TO CALL WITH NEEDS
--- NOTE | 2019-08-05 11:56 | MORECARE ---
CASE MANAGEMENT DISCHARGE SUMMARY PATIENT: JOAN SOTELO UNIT: [id number] ADM DATE: 08/03/19 AGE: 78 : 42 SEX: F ROOM/BED: D.1212 AUTHOR: ANDRE,JENIFER PHYSICIAN: REFERRING PHYSICIAN: KATELYNN PARHAM DO DATE OF SERVICE: 08/05/19 Discharge Plan Patient Name: JOAN SOTELO Facility: [facility]:[place] : 1940 Planned Disposition: Outpatient PT\OT Anticipated Discharge Date: 08/05/19 Discharge Date: Expected LOS: 2 Initial Reviewer: [email or web address] Initial Review Date: 08/03/2019 Generated: 08/05/19 12:56 pm DCP- Discharge Planning Updated by [email or web address]: Kayla Amador on 08/04/19 5:[address] DC Plans: [facility], #[phone]. CM will contact 08/04. CM met with patient to discuss initial discharge planning. Patient is in agreement to proceed with the assessment. Patient reports that she lives at home independently with her spouse and sister. Patient is alert/oriented. Stairs/steps: Ramps. PCP: Dr. Acosta. Pharmacy: [facility] , [facility]. Patient states she has been able to obtain all of their prescribed medications. HHS: No. DME: Walker, CPM, BSC, Ice wrap. Patient gives permission to speak with family members. Emergency contact: Chuy Sotelo Jr (son) [phone], Kaylyn Farah (dtr) [phone]. Patient is Independent with all ADL's, medication management EMBEDDED ENGINEER. CM discussed the availability of HH, Rehab, SNF, OP Therapy, DME services. Patient is current with [facility] ([phone]). Patient feels safe returning to previous environment. Patient denies being hospitalized within the past 30 days. Patient denies the use of community resources EMBEDDED ENGINEER. Transportation at time of discharge: , Chuy, or son Chuy Campbell. DCPIA - Discharge Planning Initial Assessment Updated by [id number]: Kayla Amador on 08/04/19 6:30 pm * Is the patient Alert and Oriented? Yes * How many steps to enter\exit or inside your home? Ramp * PCP Dr. Acosta * [facility] * Preadmission Environment Home Alone * ADLs Independent * Equipment Rolling Walker Shower Chair * Other Equipment CPM, Ice Wrap * List name and contact numbers for known caregivers / representatives who currently or will assist patient after discharge: Chuy Waldrop (son) [phone] Kaylyn Farah dtr) [phone] * Verbal permission to speak to the caregivers and representatives has been obtained from the patient. Yes * Community resources currently utilized None * Please name any agencies selected above. [facility] [phone] * Additional services required to return to the preadmission environment? Yes * Can the patient safely return to the preadmission environment? Yes * Has this patient been hospitalized within the prior 30 days at any hospital? No External Providers External Provider: OTHER-OTHER Next Contact Date: Service Request Date: Service Type: Resolution: Reviewer: Comments: Coverage Notice Reviewer: [email or web address] Glenis Amador Notice Issued Date-Time: 08/04/2019 18:39 Notice Type: IM Discharge Notice Notice Delivered To: Patient Relationship to Patient: Self Production Posting Clerk Name: Joan Sotelo Delivery Method: HAND - Hand Delivered Dayna Days: Prior Verbal Notification: Recipient Understood Notice: Yes Recipient Signature: Yes Med Rec Note Co-signed by Attending: Coverage Notice Comment: DC IMM to chart. Last DP export: 08/04/19 5:46 p Patient Name: JOAN SOTELO Page 23444 at 1156 All edits/amendments must be made on the electronic document DICTATION DATE: 08/05/19 1156 INSULATION APPLICATOR: ELLIOT 08/05/19 1156 RPT#: [id number] DC DATE: STATUS: ADM IN [facility] [address] [place] [address] END OF REPORT
--- NOTE | 2019-08-05 12:17 | MORECARE ---
CASE MANAGEMENT DISCHARGE SUMMARY PATIENT: JOAN SOTELO UNIT: [id number] ADM DATE: 08/03/19 AGE: 78 : 42 SEX: F ROOM/BED: D.1212 AUTHOR: ANDRE,JENIFER PHYSICIAN: REFERRING PHYSICIAN: KATELYNN PARHAM DO DATE OF SERVICE: 08/05/19 Discharge Plan Patient Name: JOAN SOTELO Facility: [facility]:[place] : 1940 Planned Disposition: Outpatient PT\OT Anticipated Discharge Date: 08/05/19 Discharge Date: Expected LOS: 2 Initial Reviewer: [email or web address] Initial Review Date: 08/03/2019 Generated: 08/05/19 1:16 pm DCP- Discharge Planning Updated by [email or web address]: Kayla Amador on 08/04/19 5:[address] DC Plans: [facility], #[phone]. CM will contact 08/04. CM met with patient to discuss initial discharge planning. Patient is in agreement to proceed with the assessment. Patient reports that she lives at home independently with her spouse and sister. Patient is alert/oriented. Stairs/steps: Ramps. PCP: Dr. Acosta. Pharmacy: [facility] , [facility]. Patient states she has been able to obtain all of their prescribed medications. HHS: No. DME: Walker, CPM, BSC, Ice wrap. Patient gives permission to speak with family members. Emergency contact: Chuy Sotelo Jr (son) [phone], Kaylyn Farah (dtr) [phone]. Patient is Independent with all ADL's, medication management SHEETMETAL TRADES WORKER. CM discussed the availability of HH, Rehab, SNF, OP Therapy, DME services. Patient is current with [facility] ([phone]). Patient feels safe returning to previous environment. Patient denies being hospitalized within the past 30 days. Patient denies the use of community resources SHEETMETAL TRADES WORKER. Transportation at time of discharge: , Chuy, or son Chuy Campbell. DCPIA - Discharge Planning Initial Assessment Updated by [email or web address]: Kayla Amador on 08/04/19 6:30 pm * Is the patient Alert and Oriented? Yes * How many steps to enter\exit or inside your home? Ramp * PCP Dr. Acosta * [facility] * Preadmission Environment Home Alone * ADLs Independent * Equipment Rolling Walker Shower Chair * Other Equipment CPM, Ice Wrap * List name and contact numbers for known caregivers / representatives who currently or will assist patient after discharge: Chuy Waldrop (son) [phone] Kaylyn Farah dtr) [phone] * Verbal permission to speak to the caregivers and representatives has been obtained from the patient. Yes * Community resources currently utilized None * Please name any agencies selected above. [facility] [phone] * Additional services required to return to the preadmission environment? Yes * Can the patient safely return to the preadmission environment? Yes * Has this patient been hospitalized within the prior 30 days at any hospital? No Coverage Notice Reviewer: [email or web address] Glenis Amador Notice Issued Date-Time: 08/04/2019 18:39 Notice Type: IM Discharge Notice Notice Delivered To: Patient Relationship to Patient: Self Turner In Name: Joan Sotelo Delivery Method: HAND - Hand Delivered Dayna Days: Prior Verbal Notification: Recipient Understood Notice: Yes Recipient Signature: Yes Med Rec Note Co-signed by Attending: Coverage Notice Comment: DC IMM to chart. Last DP export: 08/05/19 10:56 a Patient Name: JOAN SOTELO Page 60614 at 1217 All edits/amendments must be made on the electronic document DICTATION DATE: 08/05/19 1216 SALES AND MARKETING ASSISTANT: ELLIOT 08/05/19 1216 RPT#: [id number] DC DATE: STATUS: ADM IN [facility] [address] [place] [address] END OF REPORT
[2019-08-05 12:36] VITALS: BP 177/67
[2019-08-05 16:30] VITALS: BP 152/55
--- NOTE | 2019-08-05 16:30 | NUR ---
ASSISTED PT UP TO BSC. PT GUNNAR WELL. PT REQUEST TO SIT UP IN CHAIR FOR MEAL. ASSISTED PT TO BEDSIDE CHAIR FOR MEAL. BING CHAIR BART IN PLACE AND ON. DENIES FURTHER NEEDS AT THIS TIME. CL WITHIN REACH. ENCOURAGED TO CALL WITH NEEDS.
--- NOTE | 2019-08-05 17:35 | NUR ---
PT ASSISTED FROM BED SIDE CHAIR TO BSC AND THEN TO BED. CPM PLACED TO LEFT LOWER EXTREMITY AT THIS TIME. PT GUNNAR WELL. CL WITHIN REACH. ENCOURAGED TO CALL WITH NEEDS.
[2019-08-05 20:00] VITALS: BP 168/65
--- NOTE | 2019-08-05 20:15 | NUR ---
RESTING IN BED CPM REMOVED AT THIS TIME ASSISTED UP TO BEDSIDE COMODE AND BACK TO BED, SEE SHIFT ASSESSMENT, CALL LIGHT IN REACH, DENIES NEEDS AT THIS TIME, NO CONFUSION NOTED AT THIS TIME
[2019-08-06 04:49] VITALS: BP 174/69
[2019-08-06 08:03] LABS: BASOPHILS 0.3 % (0-2); HEMATOCRIT 38.7 % (36.0-48.0); HEMOGLOBIN 12.2 g/dL (12-16); IMMATURE GRANULOCYTES 0.3 % (0-5); LYMPHOCYTES 12.3 % (15-50); MCH 29.3 pg (26.0-34.0); MCHC 31.5 g/dL (31.0-37.0); MCV 92.8 fL (80.0-100.0); MEAN PLATELET VOLUME 9.8 fL (7.4-10.4); MONOCYTES 9.3 % (2-11); NEUTROPHILS 75.8 % (40-80); PLATELET COUNT 247 10x3/uL (130-400); RBC 4.17 10x6/uL (4.00-5.40); RDW 13.7 % (11.5-14.5); WBC 11.9 10x3/uL (4.8-10.8)
[2019-08-06 08:05] VITALS: BP 163/67
[2019-08-06 08:18] LABS: CALC OSMOLALITY 270 mosm/kg (275-300); CALCIUM 9.1 mg/dL (8.5-10.1); CARBON DIOXIDE 23.5 mmol/L (21.0-32.0); CHLORIDE - SERUM 102 mmol/L (98-107); GLUCOSE 106 mg/dL (74-106); MAGNESIUM - SERUM 1.9 mg/dL (1.8-2.4); PHOSPHOROUS 3.2 mg/dL (2.5-4.9); POTASSIUM - SERUM 3.9 mmol/L (3.5-5.1); SODIUM 135 mmol/L (136-145); UREA NITROGEN 16 mg/dL (7-18); eGFR NON AFRICAN AMERICAN 86 mL/min (90-120)
[2019-08-06 08:19] LABS: CREATININE - SERUM 0.7 mg/dL (0.6-1.3)
[2019-08-06 11:52] VITALS: BP 172/61
--- NOTE | 2019-08-06 13:30 | NUR ---
Nutrition Follow-up: Ate ~25% of breakfast this AM. Noted pt was reporting some difficulty swallowing. Passed swallow study; ST rec regular solids and thin liquids. Ok to d/c from GI standpoint. Noted possible d/c today. Diet: Regular PO intake: 43% avg x 7 meals No new wt; last wt: 168# (08/03) No BMs recorded Labs noted: Na 135 Meds noted: Protonix, Senokot, electrolyte protocol -Encourage PO intake and honor food preferences. -Offer nutrition supplements. -Monitor wt; noted daily wts ordered. -RD following.
[2019-08-06] MEDS ORDERED: HYDROCODON-ACE1 EA10 PO (15:14)
[2019-08-06] MEDS ORDERED: ELIQUIS2.5 MG PO (15:15)
[2019-08-06] MEDS ORDERED: KEFLEX500 MG PO (15:16)
--- NOTE | 2019-08-06 16:16 | MORECARE ---
CASE MANAGEMENT DISCHARGE SUMMARY PATIENT: JOAN SOTELO UNIT: [id number] ADM DATE: 08/03/19 AGE: 78 : 42 SEX: F ROOM/BED: D.1212 AUTHOR: ANDRE,JENIFER PHYSICIAN: REFERRING PHYSICIAN: KATELYNN PARHAM DO DATE OF SERVICE: 08/06/19 Discharge Plan Patient Name: JOAN OSTELO Facility: [facility]:[place] : 1940 Planned Disposition: Outpatient PT\OT Anticipated Discharge Date: 08/06/19 Discharge Date: Expected LOS: 3 Initial Reviewer: [email or web address] Initial Review Date: 08/03/2019 Generated: 08/06/19 5:15 pm DCP- Discharge Planning Updated by [email or web address]: Kayla Amador on 08/04/19 5:[address] DC Plans: [facility], #[phone]. CM will contact 08/04. CM met with patient to discuss initial discharge planning. Patient is in agreement to proceed with the assessment. Patient reports that she lives at home independently with her spouse and sister. Patient is alert/oriented. Stairs/steps: Ramps. PCP: Dr. Acosta. Pharmacy: [facility] , [facility]. Patient states she has been able to obtain all of their prescribed medications. HHS: No. DME: Walker, CPM, BSC, Ice wrap. Patient gives permission to speak with family members. Emergency contact: Chuy Sotelo Jr (son) [phone], Kaylyn Farah (dtr) [phone]. Patient is Independent with all ADL's, medication management TALENT DEVELOPMENT COORDINATOR. CM discussed the availability of HH, Rehab, SNF, OP Therapy, DME services. Patient is current with [facility] ([phone]). Patient feels safe returning to previous environment. Patient denies being hospitalized within the past 30 days. Patient denies the use of community resources TALENT DEVELOPMENT COORDINATOR. Transportation at time of discharge: , Chuy, or son Chuy Campbell. DCPIA - Discharge Planning Initial Assessment Updated by [email or web address]: Kayla Amador on 08/04/19 6:30 pm * Is the patient Alert and Oriented? Yes * How many steps to enter\exit or inside your home? Ramp * PCP Dr. Acosta * Pharmacy [facility] * Preadmission Environment Home Alone * ADLs Independent * Equipment Rolling Walker Shower Chair * Other Equipment CPM, Ice Wrap * List name and contact numbers for known caregivers / representatives who currently or will assist patient after discharge: Chuy Waldrop (son) [phone] Kaylyn Farah dtr) [phone] * Verbal permission to speak to the caregivers and representatives has been obtained from the patient. Yes * Community resources currently utilized None * Please name any agencies selected above. [facility] [phone] * Additional services required to return to the preadmission environment? Yes * Can the patient safely return to the preadmission environment? Yes * Has this patient been hospitalized within the prior 30 days at any hospital? No Coverage Notice Reviewer: [email or web address] Glenis Amador Notice Issued Date-Time: 08/04/2019 18:39 Notice Type: IM Discharge Notice Notice Delivered To: Patient Relationship to Patient: Self Kitchen Work Supervisor Name: Joan Sotelo Delivery Method: HAND - Hand Delivered Dayna Days: Prior Verbal Notification: Recipient Understood Notice: Yes Recipient Signature: Yes Med Rec Note Co-signed by Attending: Coverage Notice Comment: DC IMM to chart. Last DP export: 08/05/19 11:17 a Patient Name: JOAN SOTELO Page [id number] at 1616 All edits/amendments must be made on the electronic document DICTATION DATE: 08/06/19 1615 NAPPER GRINDER: ELLIOT 08/06/19 1615 RPT#: [id number] DC DATE: STATUS: ADM IN [facility] [address] [place] [address] END OF REPORT
--- NOTE | 2019-08-06 17:30 | MORECARE ---
CASE MANAGEMENT DISCHARGE SUMMARY PATIENT: JOAN SOTELO UNIT: [id number] ADM DATE: 08/03/19 AGE: 78 : 42 SEX: F ROOM/BED: D.1212 AUTHOR: JENIFER POWELL PHYSICIAN: REFERRING PHYSICIAN: KATELYNN PARHAM DO DATE OF SERVICE: 08/06/19 Discharge Plan Patient Name: JOAN SOTELO Facility: [facility]:[place] : 1940 Planned Disposition: Outpatient PT\OT Anticipated Discharge Date: 08/06/19 Discharge Date: 08/06/2019 Expected LOS: 3 Initial Reviewer: [email or web address] Initial Review Date: 08/03/2019 Generated: 08/06/19 6:30 pm DCP- Discharge Planning Updated by [email or web address]: Kayla Amador on 08/04/19 5:[address] DC Plans: [facility], #[phone]. CM will contact 08/04. CM met with patient to discuss initial discharge planning. Patient is in agreement to proceed with the assessment. Patient reports that she lives at home independently with her spouse and sister. Patient is alert/oriented. Stairs/steps: Ramps. PCP: Dr. Acosta. Pharmacy: [facility] Patient states she has been able to obtain all of their prescribed medications. HHS: No. DME: Walker, CPM, BSC, Ice wrap. Patient gives permission to speak with family members. Emergency contact: Chuy Sotelo Jr (son) [phone], Kaylyn Farah (dtr) [phone]. Patient is Independent with all ADL's, medication management NETBACKUP ADMIN. CM discussed the availability of HH, Rehab, SNF, OP Therapy, DME services. Patient is current with [facility] ([phone]). Patient feels safe returning to previous environment. Patient denies being hospitalized within the past 30 days. Patient denies the use of community resources NETBACKUP ADMIN. Transportation at time of discharge: , Chuy, or son Chuy Joy DCPIA - Discharge Planning Initial Assessment Updated by [id number]: Kayla Amador on 08/04/19 6:30 pm * Is the patient Alert and Oriented? Yes * How many steps to enter\exit or inside your home? Ramp * PCP Dr. Acosta * Pharmacy [facility] * Preadmission Environment Home Alone * ADLs Independent * Equipment Rolling Walker Shower Chair * Other Equipment CPM, Ice Wrap * List name and contact numbers for known caregivers / representatives who currently or will assist patient after discharge: Chuy Waldrop (son) [phone] Kaylyn Farah dtr) [phone] * Verbal permission to speak to the caregivers and representatives has been obtained from the patient. Yes * Community resources currently utilized None * Please name any agencies selected above. [facility] [phone] * Additional services required to return to the preadmission environment? Yes * Can the patient safely return to the preadmission environment? Yes * Has this patient been hospitalized within the prior 30 days at any hospital? No Coverage Notice Reviewer: [id number] - Kayla Amador Notice Issued Date-Time: 08/04/2019 18:39 Notice Type: IM Discharge Notice Notice Delivered To: Patient Relationship to Patient: Self University Tutor Name: Joan Sotelo Delivery Method: HAND - Hand Delivered Dayna Days: Prior Verbal Notification: Recipient Understood Notice: Yes Recipient Signature: Yes Med Rec Note Co-signed by Attending: Coverage Notice Comment: DC IMM to chart. Last DP export: 08/06/19 3:16 p Patient Name: JOAN SOTELO Page [id number] at 1730 All edits/amendments must be made on the electronic document DICTATION DATE: 08/06/191729 DIRECTOR OF ASSISTED LIVING: ELLIOT 08/06/191729 RPT#: [id number] DC DATE:08/06/19 STATUS: DIS IN [facility] [address] [place] [address] END OF REPORT
== END 2019-08-06 17:02 | disposition home or self-care (01) | DRG 470 ==
LOC: D.M3 08-03 07:44 → D.SDCHOLD 08-03 07:44 → D.M3 08-03 12:23 → D.SDCHOLD 08-03 13:30 → D.M3 08-03 15:14
PROVIDERS: Family Medicine; ADMIT Orthopaedic Surgery; ATTEND Orthopaedic Surgery
PROC: 0SRD0JZ Replacement of Left Knee Joint with Synthetic Substitute, Open Approach (ICD-10-PCS; principal; 2019-08-03 13:30)
DX: M17.12 Unilateral primary osteoarthritis, left knee (principal); I25.10 Atherosclerotic heart disease of native coronary artery without angina pectoris; E78.5 Hyperlipidemia, unspecified; E03.9 Hypothyroidism, unspecified; I34.0 Nonrheumatic mitral (valve) insufficiency; I10 Essential (primary) hypertension

== ENCOUNTER → 2019-07-23 09:06 | Outpatient (CLI) | payer MEDICARE, BC ==
[2017-09-10 12:13] VITALS: BMI 26.6
== END | disposition home or self-care (01) ==
LOC: D.MRI 09:06
PROVIDERS: ATTEND Family Medicine
DX: R42 Dizziness and giddiness (principal)

== ENCOUNTER 2019-09-13 08:49 | Observation (INO) | payer MEDICARE, BC ==
[~2019-09-13] VITALS: Ht 157.5 cm; Wt 65.6 kg
--- NOTE | ~2019-09-13 | ST ---
PATIENT:THERON TOLENTINO MEDICAL RECORD: [id number] SEX: F LOCATION:[address] ORDER #: ADMISSION DATE: 09/13/19 AGE OF PATIENT: 78 REFERRING PHYSICIAN: INTERPRETING PHYSICIAN: AMBER LEAL MD DATE OF SERVICE: 09/14/2019 LEXISCAN DIRECTED NUCLEAR STRESS TEST FINDINGS: The patient was brought in for a standard Lexiscan directed stress test. The patient had no problems with the procedure. No significant chest pain or hemodynamic compromise. The patient had an ejection fraction of 66%. There is no evidence of significant ischemia on this exam. IMPRESSION: Normal nuclear stress test with normal left ventricular systolic function. RECOMMENDATIONS: Continue medical management. NTS:[id number] Voice Confirmation ID: [id number] DOCUMENT ID: [id number] AMBER LEAL MD CC: [id number] DICTATION DATE: 09/14/19 [address] MANAGER: 09/14/192115 DIS IN 09/14/19 [facility] [address] [place] [address]
[~2019-09-13 08:49] MED LIST changes: +ELIQUIS2.5 MG PO; +HYDROCODON-ACE1 EA10 PO; +KEFLEX500 MG PO
[2019-09-13 09:29] LABS: HEMATOCRIT 40.5 % (36.0-48.0); HEMOGLOBIN 12.9 g/dL (12-16); LYMPHOCYTES 19.3 % (15-50); MCH 28.8 pg (26.0-34.0); MCHC 31.9 g/dL (31.0-37.0); MCV 90.4 fL (80.0-100.0); MEAN PLATELET VOLUME 9.7 fL (7.4-10.4); NEUTROPHILS 72.5 % (40-80); PLATELET COUNT 284 10x3/uL (130-400); RBC 4.48 10x6/uL (4.00-5.40); RDW 12.9 % (11.5-14.5); WBC 9.1 10x3/uL (4.8-10.8)
[2019-09-13 09:40] LABS: CALC OSMOLALITY 284 mosm/kg (275-300); CALCIUM 9.9 mg/dL (8.5-10.1); CARBON DIOXIDE 23.8 mmol/L (21.0-32.0); CHLORIDE - SERUM 107 mmol/L (98-107); GLUCOSE 103 mg/dL (74-106); POTASSIUM - SERUM 4.3 mmol/L (3.5-5.1); SODIUM 141 mmol/L (136-145); UREA NITROGEN 24 mg/dL (7-18); eGFR NON AFRICAN AMERICAN 57 mL/min (90-120)
[2019-09-13 09:59] LABS: ALBUMIN 4.1 g/dL (3.4-5.0); ALKALINE PHOSPHATASE 135 U/L (30-120); ALT (SGPT) 14 U/L (10-68); BILIRUBIN - TOTAL 0.49 mg/dL (0.2-1.3); CKMB 1.3 U/L (0.0-3.6); CREATINE KINASE 43 UL (21-215); PRO BNP 266 pg/mL (0-450); PROTEIN - SERUM 7.3 g/dL (6.4-8.2)
[2019-09-13 10:05] LABS: APTT 27.1 SECONDS (22.8-39.4); INR 0.97 (0.85-1.17); PROTIME 12.9 SECONDS (11.6-15.0)
[2019-09-13 10:06] LABS: D-DIMER-QUANTITATIVE 1.46 ug/mLFEU (0.20-0.54)
[2019-09-13 11:28] VITALS: BP 167/74
--- NOTE | 2019-09-13 13:07 | NUR ---
PT LAYING IN BED. RESPIRATIONS ARE EVEN AND UNLABORED. NO DISTRESS NOTED. COLOR WNL FOR RACE. FAMILY AT BEDSIDE. WILL CONTINUE TO MONITOR.
[2019-09-13 14:18] LABS: CREATINE KINASE 37 UL (21-215); TROPONIN-I 0.045 ng/mL (0.000-0.060)
[2019-09-13] MEDS ORDERED: PLAVIX75 MG PO (14:51)
[2019-09-13 16:24] VITALS: BP 167/70; Ht 157.5 cm; Wt 65.6 kg
--- NOTE | 2019-09-13 19:15 | NUR ---
ALERT AND OX4 BED LOW AND LOCKED CALL LIGHT IN REACH PT DENIES NEEDS AT THIS TIME
[2019-09-13 20:55] LABS: CKMB 0.6 U/L (0.0-3.6); CREATINE KINASE 31 UL (21-215)
[2019-09-13 21:51] VITALS: BP 120/59
[2019-09-14 01:26] VITALS: BP 134/60
[2019-09-14 02:13] LABS: CKMB 0.6 U/L (0.0-3.6); CREATINE KINASE 27 UL (21-215); TROPONIN-I 0.046 ng/mL (0.000-0.060)
--- NOTE | 2019-09-14 03:03 | NUR ---
I have reviewed this patient and I concur with the Shift Assessment completed by the Licensed Practical Nurse today this shift.
[2019-09-14 05:03] VITALS: BP 147/62
[2019-09-14 05:51] LABS: BASOPHILS 0.4 % (0-2); EOSINOPHILS 3.8 % (0-7); HEMATOCRIT 37.4 % (36.0-48.0); HEMOGLOBIN 11.9 g/dL (12-16); IMMATURE GRANULOCYTES 0.3 % (0-5); LYMPHOCYTES 21.4 % (15-50); MCH 29.1 pg (26.0-34.0); MCHC 31.8 g/dL (31.0-37.0); MCV 91.4 fL (80.0-100.0); MEAN PLATELET VOLUME 9.9 fL (7.4-10.4); MONOCYTES 8.5 % (2-11); NEUTROPHILS 65.6 % (40-80); PLATELET COUNT 268 10x3/uL (130-400); RBC 4.09 10x6/uL (4.00-5.40); RDW 13.4 % (11.5-14.5); WBC 7.2 10x3/uL (4.8-10.8)
[2019-09-14 06:20] LABS: ALBUMIN 3.4 g/dL (3.4-5.0); BILIRUBIN - TOTAL 0.48 mg/dL (0.2-1.3); CALCIUM 9.3 mg/dL (8.5-10.1); CARBON DIOXIDE 23.3 mmol/L (21.0-32.0); POTASSIUM - SERUM 4.3 mmol/L (3.5-5.1); PROTEIN - SERUM 6.3 g/dL (6.4-8.2)
--- NOTE | 2019-09-14 07:30 | NUR ---
REPORT RECIEVED. PT SITTING SEMI FOWLERS IN BED. RR EVEN AND UNLABORED ON RA. PT HAS A R HAND PIV THAT IS SL. BED LOCKED AND IN LOWEST POSITION, CALL LIGHT WITHIN REACH. WILL CTM
[2019-09-14 09:46] VITALS: BP 157/65
[2019-09-14 12:49] VITALS: BP 149/80
--- NOTE | 2019-09-14 16:06 | NUR ---
I have reviewed this patient and I concur with the Shift Assessment completed by the Licensed Practical Nurse today this shift.
[2019-09-14] MEDS ORDERED: COZAAR50 MG PO (16:34)
[2019-09-14] MEDS ORDERED: BAYER CHEWABLE81 MG PO (16:35)
--- NOTE | 2019-09-14 17:17 | NUR ---
DC PAPERWORK GONE OVER AND SIGNED WITH PT. ALL QUESIONS ANSWERED. PIV REMOVED, CATH TIP FULLY INTACT. PT WHEELED TO ER ENTRANCE TO MEET SON WHO WAS TAKING HER HOME. ALL VALUBLES REMOVED FROM ROOM AND TAKIN WITH PT.
== END 2019-09-14 17:31 | disposition home or self-care (01) ==
LOC: D.ER 08:49 → D.M2 13:22 → OBSVTIME 13:22 → D.M2 09-14 17:31
PROVIDERS: Family Medicine; ADMIT Family Medicine; ATTEND Family Medicine
DX: I25.110 Atherosclerotic heart disease of native coronary artery with unstable angina pectoris (principal); I10 Essential (primary) hypertension; E03.9 Hypothyroidism, unspecified; R06.00 Dyspnea, unspecified; R91.1 Solitary pulmonary nodule; M19.90 Unspecified osteoarthritis, unspecified site; E78.5 Hyperlipidemia, unspecified; I73.9 Peripheral vascular disease, unspecified